=== PATIENT | male | born 1985 | race Caucasian/White ===

== ENCOUNTER → 2021-06-11 | Outpatient (CLI) | payer BC ==
[~2021-06-11] MED LIST: FLEXERIL PO; HYDROCORTISONE3011 TP; PREDNISONE 10 M10 M1 PO; PREDNISONE 20 M20 MG PO; PREDNISONE50 MG PO; TRAMADOL 50 MG50 MG PO; ULTRAM 50MG TAB50 MG PO
== END ==
LOC: M.ULTRA 06-08 10:37
PROVIDERS: ATTEND Family Medicine
DX: N43.3 Hydrocele, unspecified (principal); N50.812 Left testicular pain; Z98.890 Other specified postprocedural states; Z87.19 Personal history of other diseases of the digestive system